=== PATIENT | female | born 1945 | race Caucasian/White ===

== ENCOUNTER 2016-04-24 09:47 | Day surgery (SDC) | payer MEDICARE, BC ==
--- NOTE | ~2016-04-24 | EGD ---
EGD REPORT [facility] [address] [address] NAME: NORMA GARY : [birth year] STATUS : REG [facility]#: [id number] AGE: 71 ADM/REG DATE : 04/24/16 MR#: [id number] REPORT SERV DATE: 04/24/16 DICTATED BY: REGINALD NUR DATE: 04/24/16 REPORT STATUS : Draft TRANS[facility]IBED BY: [facility] DATE: 04/24/16 Endoscopy Center Patient Name: Norma Gary Date of : 1945 Attending MD: REGINALD NUR MD Procedure Date No Time: 04/24/2016 Procedure: Colonoscopy Indications: High risk colon cancer surveillance: Personal history of colonic polyps Referring MD: MELLY DHILLON MD Medicines: as per anesthesia Complications: No immediate complications. Procedure: Pre-Anesthesia Assessment: - ASA Grade Assessment: II - A patient with mild systemic disease. After I obtained informed consent, the scope was passed under direct vision. Throughout the procedure, the patient's blood pressure, pulse, and oxygen saturations were monitored continuously. The PCF H190L [id number] was introduced through the anus and advanced to the cecum, identified by appendiceal orifice and ileocecal valve. The PCF H190L [id number] was introduced through the anus and advanced to the cecum, identified by appendiceal orifice and ileocecal valve. The colonoscopy was performed without difficulty. The patient tolerated the procedure. The quality of the bowel preparation was adequate to identify polyps. Findings: The perianal and digital rectal examinations were normal. A few diverticula were found in the sigmoid colon and in the descending colon. Internal hemorrhoids were found during endoscopy and were mild. Impression: - Diverticulosis in the sigmoid colon and in the descending colon. - Internal hemorrhoids. Recommendation: - Repeat colonoscopy in 5 years for surveillance. Procedure Code(s): --- Professional --- 13068, Colonoscopy, flexible, proximal to splenic flexure; diagnostic, with or without collection of specimen(s) by brushing or washing, with or without colon decompression (separate procedure) EGD REPORT [address] [place] [address] NAME: NORMA GARY : [birth year] STATUS : REG [facility]#: [id number] AGE: 71 ADM/REG DATE : 04/24/16 MR#: [id number] REPORT SERV DATE: 04/24/16 DICTATED BY: REGINALD NUR DATE: 04/24/16 REPORT STATUS : Draft TRANSCRIBED BY: [employer] DATE: 04/24/16 Diagnosis Code(s): --- Professional --- K64.8, Other hemorrhoids K57.30, Diverticulosis of large intestine without perforation or abscess without bleeding Z86.010, Personal history of colonic polyps CPT copyright 2013 [employer]. All rights reserved. The codes documented in this report are preliminary and upon surveillance system monitor review may be revised to meet current compliance requirements. REGINALD NUR MD 04/24/2016 1:17 PM This report has been signed electronically. Number of Addenda: 0 Note Initiated On: 04/24/2016 12:04 PM Scope Withdrawal Time 0 hours 6 minutes 21 seconds [address] [place] [address]
[~2016-04-24 09:47] MED LIST: ASAB PO; BYETTA10 SC; CALTRA600D PO; GLUCOPHXR7 PO; MAGNESIUM PO; MULTIPLE VIT PO; PROMEGA PO; PVC V; VITAMIN B-121000 MC1 SL; VITAMIN D1000 UNI1 PO; VITE PO; [UNRECOGNIZED DRUG - REMARK] PO
== END 2016-04-24 23:59 | disposition home or self-care (01) ==
LOC: DMU 09:47
PROVIDERS: Internal Medicine Gastroenterology
PROC: 0DJD8ZZ Inspection of Lower Intestinal Tract, Via Natural or Artificial Opening Endoscopic (ICD-10-PCS; principal; 2016-04-24 11:30)
DX: K57.30 Diverticulosis of large intestine without perforation or abscess without bleeding (principal); K64.8 Other hemorrhoids; E11.9 Type 2 diabetes mellitus without complications; M81.0 Age-related osteoporosis without current pathological fracture; Z86.010 Personal history of colon polyps; Z96.1 Presence of intraocular lens; Z91.048 Other nonmedicinal substance allergy status; Z79.82 Long term (current) use of aspirin; Z79.84 Long term (current) use of oral hypoglycemic drugs; Z79.899 Other long term (current) drug therapy; Z98.890 Other specified postprocedural states
CPT/HCPCS: 82962